=== PATIENT | male | born 1970 | race Two or more races ===

== ENCOUNTER 2018-11-21 13:27 | Emergency (ER) | payer MEDICAID ==
[~2018-11-21] VITALS: Ht 172.7 cm; Wt 86.2 kg
--- NOTE | 2018-11-21 14:02 | NUR ---
PT IS IN ROOM #2B. DR VILLALOBOS EVALUATED THE PT.
[2018-11-21] MEDS ORDERED: NEOMY/BACITRA/POLYMYXIN B OINT UD PACKET TP ONE ×2 (14:15→14:20)
--- NOTE | 2018-11-21 14:34 | NUR ---
PT WAS D/C'd TO HOME. D/C INSTRUCTIONS GIVEN TO THE PT. DRESSING IS INTACT. NO BLEEDING.
[2018-11-21 14:35] VITALS: BP 132/78
== END 2018-11-21 14:36 | disposition home or self-care (01) ==
LOC: ER 13:27
DX: S61.210A Laceration without foreign body of right index finger without damage to nail, initial encounter (principal); W26.0XXA Contact with knife, initial encounter; Y93.89 Activity, other specified; Y92.89 Other specified places as the place of occurrence of the external cause; Y99.8 Other external cause status
CPT/HCPCS: 12002; 99283; J3490; A4217; A4663

== ENCOUNTER 2018-11-23 13:10 | Emergency (ER) | payer BC, MEDICAID ==
[~2018-11-23] VITALS: Ht 167.6 cm; Wt 72.6 kg
--- NOTE | 2018-11-23 13:34 | NUR ---
Patient discharged to home in stable conditon. Written and verbal after care instructions given. Patient verbalizes understanding of instructions.
== END 2018-11-23 13:35 | disposition home or self-care (01) ==
LOC: ER 13:10
DX: S61.210D Laceration without foreign body of right index finger without damage to nail, subsequent encounter (principal); X58.XXXD Exposure to other specified factors, subsequent encounter
CPT/HCPCS: A4663